=== PATIENT | female | born 1980 | race Two or more races ===

== ENCOUNTER 2024-08-29 14:19 | Outpatient (CLI) | payer OTHER ==
[~2024-08-29 14:19] MED LIST: MELOXICAM15 MG PO; VOLTAREN ARTHRI20 GM TOP
== END 2024-08-29 14:38 | disposition home or self-care (01) ==
LOC: MRI 14:19
PROVIDERS: ATTEND Physical Medicine & Rehabilitation
DX: M79.671 Pain in right foot (principal)
CPT/HCPCS: 73718